=== PATIENT | male | born 1995 | race Caucasian/White ===

== ENCOUNTER 2021-01-02 15:45 | Emergency (ER) | payer BC ==
[2021-01-02] MEDS ORDERED: Hyoscyamine 0.125 MG Tab.SL SL ONE (16:31)
[2021-01-02] MEDS ORDERED: Aluminum Hydroxide/Magnesium Hydroxide/Simethicone Susp 30 ML Cup PO ONE (16:31)
[2021-01-02] MEDS ORDERED: Acetaminophen 325 MG Tab PO PRN (16:34)
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
--- NOTE | 2021-01-02 18:32 | CR ---
Abdomen: Supine view of the abdomen was obtained. Comparison: No prior abdominal imaging is available. Bowel gas pattern appears normal. No abnormal calcifications or soft tissue abnormality is seen. Bony structures are within normal limits for the patient's age. Impression: 1. Nothing acute is seen on supine abdominal x-ray. Diagnostic code #1
--- NOTE | 2021-01-02 18:35 | CR ---
Chest: PA view of the chest was obtained. Comparison: No prior chest imaging is available. Heart size and mediastinum are within normal limits. Lungs are clear with no acute parenchymal change. Bony structure shows nothing acute. Impression: 1. Nothing acute is appreciated on PA chest x-ray. Diagnostic code #1
== END 2021-01-02 18:48 | disposition home or self-care (01) ==
LOC: JD.ED 15:45
DX: K44.9 Diaphragmatic hernia without obstruction or gangrene (principal); R07.2 Precordial pain; Z72.0 Tobacco use
CPT/HCPCS: 36415; 71045; 74018; 80053; 82553; 83690; 84484; 85025; 86140; 93005; 99285; A9270; 93010; 99284